=== PATIENT | male | born 1955 | race Caucasian/White ===

== ENCOUNTER 2018-04-24 10:38 | Emergency (ER) | END 2018-04-24 12:25 | disposition home or self-care (01) ==

== ENCOUNTER 2018-09-12 10:24 | Emergency (ER) | payer SELFPAY ==
[~2018-09-12] VITALS: Ht 162.6 cm; Wt 59.6 kg
[2018-09-12 10:45] VITALS: BP 144/77; PULSE 87; RESP 18; Ht 162.6 cm; Wt 59.6 kg
--- NOTE | 2018-09-12 11:34 | ERD ---
ER Documentation Chief Complaint Chief Complaint constipation HPI The patient is a 62-year-old male, presenting to the ER because of constipation, minimal suprapubic discomfort for the last 3 days, had similar symptoms previously, denies fever, chills, neck pain, chest pain, dyspnea, abdominal pain, vomiting. The pain is better after Tylenol and worse if he lay on his stomach. He does not smoke or drink Past medical history: Anxiety Past surgical history: None ROS All systems reviewed and are negative except as per history of present illness. Physical Exam Vitals Vital Signs Date Temp Pulse Resp B/P (MAP) Pulse Ox O2 O2 Flow FiO2 Time Delivery Rate 09/12/18 97.9 87 18 144/77 99 10:45 (99) Physical Exam Const: No acute distress. Head: Atraumatic. Eyes: Normal Conjunctiva. ENT: Normal External Ears, Nose and Mouth. Neck: Full range of motion. No meningismus. Resp: Clear to auscultation bilaterally. Cardio: Regular rate and rhythm. Abd: Soft, non distended, normal bowel sounds, non tender. Skin: No petechiae or rashes. Back: No midline or flank tenderness. Ext: No cyanosis, or edema. Neur: Awake and alert. No focal deficit Psych: Normal Mood and Affect. Results 24 hrs Laboratory Tests Test 09/12/18 11:54 Bedside Urine pH (LAB) 5.5 Bedside Urine Protein (LAB) Negative Bedside Urine Glucose (UA) Negative Bedside Urine Ketones (LAB) Negative Bedside Urine Blood Negative Bedside Urine Nitrite (LAB) Negative Bedside Urine Leukocyte Esterase (L Negative Procedures/MDM MEDICAL MAKING DECISION: The patient is a 62-year-old male, presenting with constipation, is stable for outpatient follow-up The differential diagnoses considered include but are not limited to cholelithiasis, cholecystitis, choledocholithiasis, cholangitis, pancreatitis, hepatitis, gastritis, peptic ulcer disease, gastric ulcer, appendicitis, cystitis, diverticulitis, partial small bowel obstruction. Departure Diagnosis: Primary Impression: Constipation Condition: Good Comments He was discharged with [facility] I discussed the findings with the patient. I advised the patient to follow-up with the primary physician in about 2-3 days, sooner if needed and return if any concern. Disclaimer: Inadvertent spelling and grammatical errors are likely due to EHR/dictation software use and do not reflect on the overall quality of patient care. Also, please note that the electronic time recorded on this note does not necessarily reflect the actual time of the patient encounter. CORBY FRANCISCO MD Sep 12, 2018 11:34
[2018-09-12] MEDS ORDERED: POLY17PO6 PO (12:25)
== END 2018-09-12 12:38 | disposition home or self-care (01) ==
LOC: FTE 10:24
DX: K59.00 Constipation, unspecified (principal)
CPT/HCPCS: 81003; 99282